=== PATIENT | male | born 1965 | race Caucasian/White ===

== ENCOUNTER 2016-08-01 20:17 | Emergency (ER) | payer BC ==
[2016-08-01] MEDS ORDERED: SODIUM CHLORIDE 0.9% 1,000 ML IV STA (20:45)
[2016-08-01] MEDS ORDERED: KETOROLAC 30 MG/ML 1 ML VIAL IVP STA (20:45)
[2016-08-01] MEDS ORDERED: ORPHENADRINE 30 MG/ML 2 ML VIAL IVP STA (20:46)
--- NOTE | 2016-08-01 21:04 | ED ---
Back Pain HPI - General Chief Complaint: Back Pain/Injury Stated Complaint: poss kidney infection Time Seen by Provider: 08/01/16 20:30 Source: patient, RN notes reviewed, old records reviewed Limitations: no limitations - History of Present Illness Initial Comments: This is a 50-year-old male presenting to the emergency department with chief complaint of lower back pain for the past day. Patient reports it's not either side. Patient reports that he has had diarrhea for the past 2 days. He reports that he caught something from working attributed to just a cold. Patient reports he size primary care provider last week and everything was fine. Patient states that he thinks he has a urinary tract infection. Denies any blood in his urine. Denies this this pain does not feel like previous kidney stones. - Related Data Home Medications Medication Instructions Recorded Confirmed Dextroamphetamine/Amphetamine 20 mg PO DAILY 08/01/16 08/01/16 [Adderall Xr] Ibuprofen [Motrin] 800 mg PO TID 08/01/16 08/01/16 Levothyroxine Sodium [Synthroid] 200 mcg PO DAILY 08/01/16 08/01/16 Omeprazole 20 mg PO BID 08/01/16 08/01/16 Simvastatin [Zocor] 40 mg PO DAILY 08/01/16 08/01/16 Previous Rx's Medication Instructions Recorded Ciprofloxacin HCl [Cipro] 500 mg PO Q12HR #6 tablet 08/01/16 Loperamide [Imodium] 2 mg PO QID #12 capsule 08/01/16 Allergies Allergy/AdvReac Type Severity Reaction Status Date / Time No Known Allergies Allergy Verified 08/01/16 20:49 Review of Systems ROS Statement: Those systems with pertinent positive or pertinent negative responses have been documented in the HPI. ROS Other: All systems not noted in ROS Statement are negative. Past Medical History Past Medical History: GERD/Reflux, Thyroid Disorder Additional Past Medical History / Comment(s): Kidney stone History of Any Multi-Drug Resistant Organisms: None Reported Additional Past Surgical History / Comment(s): fatty tumor from chest Past Psychological History: ADD/ADHD Smoking Status: Current every day smoker Past Alcohol Use History: None Reported Past Drug Use History: None Reported General Exam - General Exam Comments Initial Comments: This is a 50-year-old male. No acute distress. Limitations: no limitations General appearance: alert, in no apparent distress Head exam: Present: atraumatic, normocephalic, normal inspection Eye exam: Present: normal appearance, PERRL, EOMI. Absent: scleral icterus, conjunctival injection, periorbital swelling ENT exam: Present: normal exam, mucous membranes moist Neck exam: Present: normal inspection. Absent: tenderness, meningismus, lymphadenopathy Respiratory exam: Present: normal lung sounds bilaterally. Absent: respiratory distress, wheezes, rales, rhonchi, stridor Cardiovascular Exam: Present: regular rate, normal rhythm, normal heart sounds. Absent: systolic murmur, diastolic murmur, rubs, gallop, clicks GI/Abdominal exam: Present: soft, normal bowel sounds. Absent: distended, tenderness, guarding, rebound, rigid Extremities exam: Present: normal inspection, full ROM, normal capillary refill. Absent: tenderness, pedal edema, joint swelling, calf tenderness Back exam: Present: normal inspection Neurological exam: Present: alert, oriented X3, CN II-XII intact Psychiatric exam: Present: normal affect, normal mood Skin exam: Present: warm, dry, intact, normal color. Absent: rash Course Vital Signs 08/01/16 08/01/16 20:20 22:45 Temperature 98.0 F 97.9 F Pulse Rate 85 71 Respiratory 18 16 Rate Blood Pressure 146/80 142/78 O2 Sat by Pulse 98 100 Oximetry Medical Decision Making - Medical Decision Making This is a 50-year-old male presenting to the emergency department with chief complaint of lower back pain for the past day. Patient reports it's not either side. Patient reports that he has had diarrhea for the past 2 days. He reports that he caught something from working attributed to just a cold. Patient reports he size primary care provider last week and everything was fine. Patient states that he thinks he has a urinary tract infection. Denies any blood in his urine. Denies this this pain does not feel like previous kidney stones. Herber was reviewed and negative for any acute process. Patient reports he still has somewhat discomfort after receiving IV Norflex and pain medication. Patient advised of results. Discussed that he does not want a CAT scan. Patient reports that he will follow-up with her tomorrow with his primary care provider. Return parameters were discussed. - Lab Data Result diagrams: 08/01/16 21:00 08/01/16 21:00 Lab Results 06/08/01/16 08/01/16 Range/Units 21:00 21:00 21:20 WBC 6.0 (3.8-10.6) k/uL RBC 4.37 (4.30-5.90) m/uL Hgb 14.7 (13.0-17.5) gm/dL Hct 41.6 (39.0-53.0) % MCV 95.1 (80.0-100.0) fL MCH 33.6 (25.0-35.0) pg MCHC 35.3 (31.0-37.0) g/dL RDW 13.1 (11.5-15.5) % Plt Count 316 (150-450) k/uL Neutrophils % 57 % Lymphocytes % 28 % Monocytes % 5 % Eosinophils % 7 % Basophils % 1 % Neutrophils # 3.4 (1.3-7.7) k/uL Lymphocytes # 1.7 (1.0-4.8) k/uL Monocytes # 0.3 (0-1.0) k/uL Eosinophils # 0.4 (0-0.7) k/uL Basophils # 0.0 (0-0.2) k/uL Sodium 141 (137-145) mmol/L Potassium 3.9 (3.5-5.1) mmol/L Chloride 108 H (98-107) mmol/L Carbon Dioxide 24 (22-30) mmol/L Anion Gap 9 mmol/L BUN 14 (9-20) mg/dL Creatinine 0.85 (0.66-1.25) mg/dL Est GFR (MDRD) Af Amer >60 (>60 ml/min/1.73 sqM) Est GFR (MDRD) Non-Af >60 (>60 ml/min/1.73 sqM) Glucose 98 (74-99) mg/dL Calcium 8.8 (8.4-10.2) mg/dL Total Bilirubin 0.5 (0.2-1.3) mg/dL AST 25 (17-59) U/L ALT 30 (21-72) U/L Alkaline Phosphatase 61 (38-126) U/L Total Protein 6.6 (6.3-8.2) g/dL Albumin 3.9 (3.5-5.0) g/dL Amylase 85 (30-110) U/L Lipase 117 (23-300) U/L Urine Color Yellow Urine Appearance Clear (Clear) Urine pH 6.0 (5.0-8.0) Ur Specific [place] 1.016 (1.001-1.035) Urine Protein Negative (Negative) Urine Glucose (UA) Negative (Negative) Urine Ketones Negative (Negative) Urine Blood Negative (Negative) Urine Nitrite Negative (Negative) Urine Bilirubin Negative (Negative) Urine Urobilinogen <2.0 (<2.0) mg/dL Ur Leukocyte Esterase Negative (Negative) Disposition Clinical Impression: Diarrhea, Lower back pain Disposition: HOME SELF-CARE Condition: Good Instructions: Acute Diarrhea (ED), Acute Low Back Pain (ED) Additional Instructions: Patient advised to rest, increase fluids. Completely anabiotic prescription. Use the diarrhea pulses discussed. Follow-up with her primary care provider if symptoms continue persist. Return to emergency department if any alarming signs or symptoms occur. Prescriptions: Ciprofloxacin HCl [Cipro] 500 mg PO Q12HR #6 tablet Loperamide [Imodium] 2 mg PO QID #12 capsule Referrals: Nonstaff,Physician [Primary Care Provider] - 1-2 days Leola Doty MD [STAFF PHYSICIAN] - 1-2 days Time of Disposition: 22:24
[2016-08-01 21:17] LABS: ALT 30 U/L (21-72); AST 25 U/L (17-59); Alkaline Phosphatase 61 U/L (38-126); Amylase 85 U/L (30-110); Anion Gap 9 mmol/L; Blood Urea Nitrogen 14 mg/dL (9-20); Calcium 8.8 mg/dL (8.4-10.2); Carbon Dioxide 24 mmol/L (22-30); Chloride 108 mmol/L (98-107); Glucose 98 mg/dL (74-99); Non-African American GFR(MDRD) >60 (>60 ml/min/1.73 sqM); Potassium 3.9 mmol/L (3.5-5.1); Sodium 141 mmol/L (137-145); Total Bilirubin 0.5 mg/dL (0.2-1.3); Total Protein 6.6 g/dL (6.3-8.2)
--- NOTE | 2016-08-01 21:17 | XR ---
EXAMINATION TYPE: XR KUB DATE OF EXAM: 08/01/2016 COMPARISON: NONE HISTORY: Abdominal pain TECHNIQUE: 2 views FINDINGS: There is no sign of intestinal obstruction or pneumoperitoneum. Fecal pattern is normal. Th ere is no sign of a mass. there is possible infiltrate at the left lung base. There are no pathologic calcifications over the kidneys. IMPRESSION: Nonacute abdomen. Possible infiltrate at the right lung base.
[2016-08-01 21:24] LABS: Basophils % (A) 1 %; CH 33.5; CHCM 35.3; Eosinophils # (A) 0.4 k/uL (0-0.7); Eosinophils % (A) 7 %; HCT 41.6 % (39.0-53.0); HDW 2.35; HGB 14.7 gm/dL (13.0-17.5); Luc # (Auto) 0.15; Luc % (Auto) 3; Lymphocytes # (A) 1.7 k/uL (1.0-4.8); Lymphocytes % (A) 28 %; MCH 33.6 pg (25.0-35.0); MCHC 35.3 g/dL (31.0-37.0); MCV 95.1 fL (80.0-100.0); Mean Platelet Volume 6.3; Monocytes # (A) 0.3 k/uL (0-1.0); Monocytes % (A) 5 %; Neutrophils # (A) 3.4 k/uL (1.3-7.7); Neutrophils % (A) 57 %; RBC 4.37 m/uL (4.30-5.90); RDW 13.1 % (11.5-15.5); WBC (Perox) 6.24
[2016-08-01 21:42] LABS: Appearance,Urine Clear (Clear); Bilirubin,Urine Negative (Negative); Glucose,Urine (UA) Negative (Negative); Ketones,Urine Negative (Negative); Leukocyte Esterase,Urine Negative (Negative); Nitrite,Urine Negative (Negative); Protein,Urine Negative (Negative); Specific Gravity,Urine 1.016 (1.001-1.035); UA Billing (MACRO vs. MICRO) CHEM; Urobilinogen,Urine <2.0 mg/dL (<2.0)
[2016-08-01 23:04] VITALS: BP 142/78; PULSE 71; RESP 16; TEMP 97.9
== END 2016-08-01 22:45 | disposition home or self-care (01) ==
LOC: EC 20:17
DX: M54.5 Low back pain (principal); R19.7 Diarrhea, unspecified; F90.9 Attention-deficit hyperactivity disorder, unspecified type; K21.9 Gastro-esophageal reflux disease without esophagitis; E07.9 Disorder of thyroid, unspecified; F17.200 Nicotine dependence, unspecified, uncomplicated; Z79.1 Long term (current) use of non-steroidal anti-inflammatories (NSAID); Z79.899 Other long term (current) drug therapy; Z87.442 Personal history of urinary calculi
CPT/HCPCS: 36415; 80053; 82150; 83690; 85025; 81003; 74000; 99284; 96374; 96375; J2360; J1885

== ENCOUNTER 2020-10-10 11:54 | Emergency (ER) | payer BC ==
[2020-10-10 12:09] VITALS: RESP 18; TEMP 97.2
[2020-10-10] MEDS ORDERED: ONDANSETRON 4 MG/2 ML VIAL IVP STA ×2 (12:15→14:05)
[2020-10-10] MEDS ORDERED: SODIUM CHLORIDE 0.9% 1,000 ML IV STA (12:15)
[2020-10-10] MEDS ORDERED: HYDROmorphone 0.5 MG/0.5 ML SYRINGE IVP STA (12:15)
[2020-10-10] MEDS ORDERED: KETOROLAC 15 MG/ML 1 ML VIAL IVP STA (12:15)
--- NOTE | 2020-10-10 12:15 | ED ---
Abdominal Pain HPI - General Chief Complaint: Abdominal Pain Stated Complaint: Back Pain Time Seen by Provider: 10/10/20 12:05 Source: patient Mode of arrival: EMS Limitations: no limitations - History of Present Illness Initial Comments: 55-year-old male with past medical history of thyroid disorder, kidney stones who presents emergency department with reported left-sided flank pain which radiates around to the anterior aspect of his low groin. Patient admits a history of similar pain in the past secondary to kidney stones. Reports his last one was a couple of years ago. Does not follow with urologist. Pain started yesterday around 3 PM. States that sharp in nature and not reproducible with movement. Associated fevers. Admits chills. Has been taking Motrin 800 mg every 6 hours without improvement in his pain. No dysuria, hematuria or difficult voiding. Denies any changes in his bowel movements. Admits nausea without vomiting. No testicular swelling or penile discharge. No other alleviating, precipitating or modifying factors - Related Data Home Medications Medication Instructions Recorded Confirmed Dextroamphetamine/Amphetamine 20 mg PO DAILY 08/01/16 10/12/20 [Adderall Xr] Ibuprofen [Motrin] 800 mg PO Q8H 08/01/16 10/12/20 Levothyroxine Sodium [Synthroid] 200 mcg PO DAILY 08/01/16 10/12/20 Omeprazole 20 mg PO BID 08/01/16 10/12/20 Simvastatin [Zocor] 40 mg PO HS 08/01/16 10/12/20 Albuterol Inhaler [Ventolin Hfa 2 puff INHALATION RT-Q6H PRN 10/10/20 10/12/20 Inhaler] Cetirizine HCl [Zyrtec] 10 mg PO DAILY 10/10/20 10/12/20 Previous Rx's Medication Instructions Recorded HYDROcodone/APAP 5-325MG [Thornton 1 tab PO Q6HR PRN 3 Days #12 tab 10/10/20 5-325] Ketorolac [Toradol] 10 mg PO Q8HR PRN #15 tab 10/10/20 Ondansetron Odt [Zofran Odt] 4 mg PO Q8HR PRN #10 tab 10/10/20 Tamsulosin [Flomax] 0.4 mg PO DAILY #7 cap 10/10/20 HYDROcodone/APAP 10-325MG [Thornton 1 tab PO Q6HR PRN 3 Days #12 tab 10/12/20 10-325] Ketorolac [Toradol] 10 mg PO Q8HR #15 tab 10/12/20 Tamsulosin [Flomax] 0.4 mg PO DAILY #7 cap 10/12/20 Allergies Allergy/AdvReac Type Severity Reaction Status Date / Time No Known Allergies Allergy Verified 10/12/20 16:41 Review of Systems ROS Statement: Those systems with pertinent positive or pertinent negative responses have been documented in the HPI. ROS Other: All systems not noted in ROS Statement are negative. 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 Absent: scleral icterus, co njunctival injection, periorbital swelling ENT exam: Present: normal exam, mucous membranes moist Neck exam: Present: normal inspection. Absent: tenderness, meningismus, lymphadenopathy Respiratory exam: Present: normal lung sounds bilaterally. Absent: respiratory distress, wheezes, rales, rhonchi, stridor Cardiovascular Exam: Present: regular rate, normal rhythm, normal heart sounds. Absent: systolic murmur, diastolic murmur, rubs, gallop, clicks GI/Abdominal exam: Present: soft, normal bowel sounds. Absent: distended, tenderness, guarding, rebound, rigid Extremities exam: Present: normal inspection, full ROM, normal capillary refill. Absent: tenderness, pedal edema, joint swelling, calf tenderness Back exam: Present: CVA tenderness (L) Neurological exam: Present: alert, oriented X3, CN II-XII intact Psychiatric exam: Present: normal affect, normal mood Skin exam: Present: warm, dry, intact, normal color. Absent: rash Course Vital Signs 10/10/20 10/10/20 12:04 14:25 Temperature 97.2 F L Pulse Rate 62 70 Respiratory 18 18 Rate Blood Pressure 144/94 140/76 O2 Sat by Pulse 99 99 Oximetry - Reevaluation(s) Reevaluation #1: 10/10/20 14:[address] Batista - will review imaging and call back Medical Decision Making - Medical Decision Making Upon arrival patient was placed into room 20. A thorough history and physical exam is performed. IV is established. The patient was given a liter bolus of normal saline, 4 mg of Zofran, 15 mill grams of Toradol and 0.5 mg of Dilaudid. Laboratory studies were conducted. Patient provided urine sample. He is sent over for a CT of his abdomen and pelvis. Laboratory studies are reviewed and are within normal limits. Urinalysis demonstrates occasional bacteria with rare budding yeast. CT of the patient's abdomen and pelvis demonstrates a calcification overlying the prostate urethra measuring 4.5 x 3.7 mm. These results were discussed the patient. He is reevaluated and states he has improvement in his pain. I did discuss diagnosis, differential treatment options. At this time the patient will be discharged home with prescriptions for Flomax, Toradol, Thornton and Zofran. Side effect profile is discussed regarding the medications. Patient is to increase fluid intake and strain all his urine. Patient agreed to this. He was given urology follow-up. He does get into a wheelchair to be wheeled out to his car when he does have sudden onset or the return of his pain. A second dose of pain medications is ordered. I did call and seek with Dr. Batista in regards to the patient's symptoms. He recommends a ladder scan and possible Roberts catheter placement the patient is having retention of urine. The patient does attempted to pee. He has 75 mL of urine left in his bladder. I did recommend roberts placement to help with pain reduction over the patient refuses. I did discuss the diagnosis and further treatment options. Patient feels comfortable for discharge at this time. He is given follow-up information for the urologist. Instructed to return to the emergency room for any new or worsening symptoms. Patient stated this, was given written and verbal discharge instructions and discharged home in stable condition - Lab Data Result diagrams: 10/10/20 12:20 10/10/20 12:20 Lab Results 10/10/20 10/10/20 10/10/20 Range/Units 12:20 12:20 13:25 WBC 6.8 (3.8-10.6) k/uL RBC 4.75 (4.30-5.90) m/uL Hgb 15.5 (13.0-17.5) gm/dL Hct 45.2 (39.0-53.0) % MCV 95.2 (80.0-100.0) fL MCH 32.7 (25.0-35.0) pg MCHC 34.3 (31.0-37.0) g/dL RDW 12.8 (11.5-15.5) % Plt Count 363 (150-450) k/uL MPV 6.4 Neutrophils % 63 % Lymphocytes % 21 % Monocytes % 5 % Eosinophils % 7 % Basophils % 1 % Neutrophils # 4.3 (1.3-7.7) k/uL Lymphocytes # 1.5 (1.0-4.8) k/uL Monocytes # 0.3 (0-1.0) k/uL Eosinophils # 0.5 (0-0.7) k/uL Basophils # 0.1 (0-0.2) k/uL Sodium 137 (137-145) mmol/L Potassium 4.6 (3.5-5.1) mmol/L Chloride 105 (98-107) mmol/L Carbon Dioxide 26 (22-30) mmol/L Anion Gap 6 mmol/L BUN 17 (9-20) mg/dL Creatinine 0.69 (0.66-1.25) mg/dL Est GFR (CKD-EPI)AfAm >90 (>60 ml/min/1.73 sqM) Est GFR (CKD-EPI)NonAf >90 (>60 ml/min/1.73 sqM) Glucose 102 H (74-99) mg/dL Calcium 9.0 (8.4-10.2) mg/dL Total Bilirubin 0.5 (0.2-1.3) mg/dL AST 28 (17-59) U/L ALT 26 (4-49) U/L Alkaline Phosphatase 58 (38-126) U/L Total Protein 6.7 (6.3-8.2) g/dL Albumin 4.0 (3.5-5.0) g/dL Lipase 56 (23-300) U/L Urine Color Yellow Urine Appearance Cloudy (Clear) Urine pH 8.0 (5.0-8.0) Ur Specific [place] 1.026 (1.001-1.035) Urine Protein Negative (Negative) Urine Glucose (UA) Negative (Negative) Urine Ketones Negative (Negative) Urine Blood Negative (Negative) Urine Nitrite Negative (Negative) Urine Bilirubin Negative (Negative) Urine Urobilinogen <2.0 (<2.0) mg/dL Ur Leukocyte Esterase Negative (Negative) Urine RBC <1 (0-5) /hpf Urine WBC 1 (0-5) /hpf Urine Bacteria Occasional H (None) /hpf Urine Mucus Few H (None) /hpf Urine Yeast (Budding) Rare H (None) /hpf Disposition Clinical Impression: Left flank pain, Urethral stone Disposition: HOME SELF-CARE Condition: Stable Instructions (If sedation given, give patient instructions): Kidney Stones (ED) Additional Instructions: Please follow up with your PCP in 2-4 days. Take the pain meds as directed. Follow up with the urologist. Return to the ED for any new or worsening symptoms. Strain all your urine. Increase fluid intake. Prescriptions: Tamsulosin [Flomax] 0.4 mg PO DAILY #7 cap HYDROcodone/APAP 5-325MG [Thornton 5-325] 1 tab PO Q6HR PRN 3 Days #12 tab PRN Reason: Pain Ketorolac [Toradol] 10 mg PO Q8HR PRN #15 tab PRN Reason: Pain Ondansetron Odt [Zofran Odt] 4 mg PO Q8HR PRN #10 tab PRN Reason: Nausea Is patient prescribed a controlled substance at d/c from ED?: Yes When asked, does pt state using other controlled substances?: No If prescribed controlled substance>3 days was MAPS reviewed?: Prescribed <3 Days If opioid is for acute pain is fill amount 7 days or less?: Yes If Rx opioid, was Start Talking consent form obtained?: Yes Referrals: Per Batista MD [STAFF PHYSICIAN] - 1-2 days Nonstaff,Physician [Primary Care Provider] - 1-2 days Time of Disposition: 14:09
[2020-10-10 12:53] LABS: Basophils # (A) 0.1 k/uL (0-0.2); Basophils % (A) 1 %; Eosinophils # (A) 0.5 k/uL (0-0.7); Eosinophils % (A) 7 %; HCT 45.2 % (39.0-53.0); HGB 15.5 gm/dL (13.0-17.5); Lymphocytes # (A) 1.5 k/uL (1.0-4.8); Lymphocytes % (A) 21 %; MCH 32.7 pg (25.0-35.0); MCHC 34.3 g/dL (31.0-37.0); MCV 95.2 fL (80.0-100.0); Mean Platelet Volume 6.4; Monocytes # (A) 0.3 k/uL (0-1.0); Monocytes % (A) 5 %; Neutrophils # (A) 4.3 k/uL (1.3-7.7); Neutrophils % (A) 63 %; Platelet Count 363 k/uL (150-450); RBC 4.75 m/uL (4.30-5.90); RDW 12.8 % (11.5-15.5); WBC 6.8 k/uL (3.8-10.6)
[2020-10-10 12:55] LABS: Chloride 105 mmol/L (98-107)
[2020-10-10 12:58] LABS: ALT 26 U/L (4-49); AST 28 U/L (17-59); African American GFR (CKD) >90 (>60 ml/min/1.73 sqM); Alkaline Phosphatase 58 U/L (38-126); Anion Gap 6 mmol/L; Blood Urea Nitrogen 17 mg/dL (9-20); Carbon Dioxide 26 mmol/L (22-30); Glucose 102 mg/dL (74-99); Lipase 56 U/L (23-300); Non-African American GFR(CKD) >90 (>60 ml/min/1.73 sqM); Potassium 4.6 mmol/L (3.5-5.1); Sodium 137 mmol/L (137-145); Total Bilirubin 0.5 mg/dL (0.2-1.3); Total Protein 6.7 g/dL (6.3-8.2)
--- NOTE | 2020-10-10 13:29 | CT ---
EXAMINATION TYPE: CT abdomen pelvis wo con DATE OF EXAM: 10/10/2020 COMPARISON: None HISTORY: Lt flank pain, history of renal stones CT DLP: 1365.4 mGycm Examination of the solid and hollow viscera is limited given the lack of contrast. FINDINGS: LUNG BASES: No evidence for nodule. No evidence for infiltrate. LIVER/GB: The gallbladder is unremarkable. No space-occupying hepatic lesion. PANCREAS: No pancreatic mass identified. No inflammatory process seen. SPLEEN: No evidence for splenomegaly. No intrasplenic lesions seen. ADRENALS: No adrenal nodules identified. No evidence for thickening. KIDNEYS: There is calcific density noted to overlie the region of the prostate urethra measuring 4.5 x 3.7 mm. This could reflect a recently passed calculus. There is no hydronephrosis however. No renal calculi or masses are seen at this time. Correlate clinically. BOWEL: Appendix has a normal appearance. No evidence of bowel obstruction. No inflammatory process. S igmoid diverticulosis without diverticulitis. Lymph nodes: No evidence for adenopathy greater than 1 cm. Abdominal aorta: Atheromatous changes seen. No evidence for aneurysm. Genital organs: No significant abnormality. Other: No significant abnormality. IMPRESSION: 1.There is calcific density noted to overlie the region of the prostate urethra measuring 4.5 x 3.7 m m. This could reflect a recently passed calculus. Correlate clinically.
[2020-10-10 13:45] LABS: Appearance,Urine Cloudy (Clear); Bacteria,Urine Occasional /hpf; Bilirubin,Urine Negative (Negative); Blood,Urine Negative (Negative); Budding Yeast,Urine Rare /hpf; Color,Urine Yellow; Glucose,Urine (UA) Negative (Negative); Ketones,Urine Negative (Negative); Leukocyte Esterase,Urine Negative (Negative); Mucus,Urine Few /hpf; Nitrite,Urine Negative (Negative); Protein,Urine Negative (Negative); RBC,Urine <1 /hpf (0-5); Specific Gravity,Urine 1.026 (1.001-1.035); Urobilinogen,Urine <2.0 mg/dL (<2.0); WBC,Urine 1 /hpf (0-5)
[2020-10-10] MEDS ORDERED: HYDROmorphone 1 MG/ML 1 ML SYRINGE IVP STA (14:05)
[2020-10-10 14:27] VITALS: BP 140/76; PULSE 70
== END 2020-10-10 15:31 | disposition home or self-care (01) ==
LOC: EC 11:54
DX: N21.1 Calculus in urethra (principal); E07.9 Disorder of thyroid, unspecified; K21.9 Gastro-esophageal reflux disease without esophagitis; Z79.899 Other long term (current) drug therapy; Z87.891 Personal history of nicotine dependence; Z79.890 Hormone replacement therapy
CPT/HCPCS: 36415; 80053; 83690; 85025; 81001; 74176; 99284; 96374; 96375; 96376; J2405; J1170 ×2; J1885

== ENCOUNTER 2020-10-12 13:48 | Emergency (ER) | payer BC ==
[2020-10-12 14:03] VITALS: TEMP 98.2
[2020-10-12] MEDS ORDERED: ONDANSETRON 4 MG/2 ML VIAL IVP STA ×2 (14:14→15:44)
[2020-10-12] MEDS ORDERED: SODIUM CHLORIDE 0.9% 1,000 ML IV STA (14:14)
[2020-10-12] MEDS ORDERED: KETOROLAC 15 MG/ML 1 ML VIAL IVP STA (14:14)
[2020-10-12 14:41] VITALS: RESP 18
[2020-10-12 14:44] LABS: Basophils # (A) 0.1 k/uL (0-0.2); Basophils % (A) 1 %; Eosinophils # (A) 0.2 k/uL (0-0.7); Eosinophils % (A) 3 %; HCT 45.5 % (39.0-53.0); HGB 15.7 gm/dL (13.0-17.5); Lymphocytes # (A) 1.3 k/uL (1.0-4.8); Lymphocytes % (A) 19 %; MCHC 34.5 g/dL (31.0-37.0); MCV 95.5 fL (80.0-100.0); Mean Platelet Volume 6.8; Monocytes # (A) 0.4 k/uL (0-1.0); Monocytes % (A) 5 %; Neutrophils % (A) 70 %; Platelet Count 360 k/uL (150-450); RBC 4.77 m/uL (4.30-5.90); RDW 12.9 % (11.5-15.5); WBC 7.2 k/uL (3.8-10.6)
[2020-10-12 14:52] LABS: ALT 24 U/L (4-49); AST 38 U/L (17-59); African American GFR (CKD) >90 (>60 ml/min/1.73 sqM); Alkaline Phosphatase 50 U/L (38-126); Anion Gap 6 mmol/L; Blood Urea Nitrogen 15 mg/dL (9-20); Calcium 8.9 mg/dL (8.4-10.2); Carbon Dioxide 24 mmol/L (22-30); Chloride 105 mmol/L (98-107); Glucose 96 mg/dL (74-99); Non-African American GFR(CKD) >90 (>60 ml/min/1.73 sqM); Sodium 135 mmol/L (137-145); Total Bilirubin 0.8 mg/dL (0.2-1.3); Total Protein 6.7 g/dL (6.3-8.2)
--- NOTE | 2020-10-12 15:10 | XR ---
EXAMINATION TYPE: XR KUB DATE OF EXAM: 10/12/2020 COMPARISON: NONE HISTORY: Pain TECHNIQUE: One view abdominal series FINDINGS: The osseous structures are intact. The bowel gas pattern is nonspecific. Lung bases are clear. Hype rtrophic and degenerative change of the spine. Arthropathy of the hips. IMPRESSION: 1. Nonspecific abdomen.
[2020-10-12] MEDS ORDERED: HYDROmorphone 0.5 MG/0.5 ML SYRINGE IVP STA (15:34)
[2020-10-12 15:50] LABS: Appearance,Urine Clear (Clear); Bilirubin,Urine Negative (Negative); Blood,Urine Negative (Negative); Color,Urine Light Yellow; Glucose,Urine (UA) Negative (Negative); Ketones,Urine Negative (Negative); Leukocyte Esterase,Urine Negative (Negative); Nitrite,Urine Negative (Negative); PH, Urine 6.5 (5.0-8.0); Protein,Urine Negative (Negative); Specific Gravity,Urine 1.008 (1.001-1.035); Urobilinogen,Urine <2.0 mg/dL (<2.0)
--- NOTE | 2020-10-12 17:21 | US ---
EXAMINATION TYPE: US kidneys/renal and bladder DATE OF EXAM: 10/12/2020 COMPARISON: CT abdomen pelvis 10/10/2020 CLINICAL HISTORY: stones. Left flank pain EXAM MEASUREMENTS: Right Kidney: 10.7 x 5.4 x 5.1 cm Left Kidney: 11.8 x 4.9 x 6.0 cm Right Kidney: No hydronephrosis. Left Kidney: No hydronephrosis. Bladder: anechoic, wnl Bilateral Jets not seen The bilateral kidneys are obscured from patient body habitus and bowel gas. There is no hydronephrosi s bilaterally. There is normal cortical thickness and renal echogenicity of the bilateral kidneys. No shadowing nephrolithiasis bilaterally. The urinary bladder is anechoic and normal. Bilateral urete ral jets are not visualized. IMPRESSION: 1. No hydronephrosis bilaterally. 2. Normal appearance of the urinary bladder.
--- NOTE | 2020-10-12 17:38 | ED ---
Abdominal Pain HPI - General Chief Complaint: Abdominal Pain Stated Complaint: back pain Time Seen by Provider: 10/12/20 14:04 Source: patient, RN notes reviewed Mode of arrival: EMS Limitations: no limitations - History of Present Illness Initial Comments: Patient is a 55-year-old male that presents to the emergency department complaining of left flank pain. He notes he was recently diagnosed a kidney stone sent home with conservative management told to increase fluids and follow- up with urology. He comes in today complaining of the same pain stating that his urine wasn't ran. His wanted to check for UTI possibly. He was in obvious discomfort and pain while sitting up in bed during the exam interview. He denied any hematuria chest pain shortness of breath headache nausea vomiting diarrhea constipation fever fatigue chills. - Related Data Home Medications Medication Instructions Recorded Confirmed Dextroamphetamine/Amphetamine 20 mg PO DAILY 08/01/16 10/12/20 [Adderall Xr] Ibuprofen [Motrin] 800 mg PO Q8H 08/01/16 10/12/20 Levothyroxine Sodium [Synthroid] 200 mcg PO DAILY 08/01/16 10/12/20 Omeprazole 20 mg PO BID 08/01/16 10/12/20 Simvastatin [Zocor] 40 mg PO HS 08/01/16 10/12/20 Albuterol Inhaler [Ventolin Hfa 2 puff INHALATION RT-Q6H PRN 10/10/20 10/12/20 Inhaler] Cetirizine HCl [Zyrtec] 10 mg PO DAILY 10/10/20 10/12/20 Previous Rx's Medication Instructions Recorded HYDROcodone/APAP 5-325MG [[place] 1 tab PO Q6HR PRN 3 Days #12 tab 10/10/20 5-325] Ketorolac [Toradol] 10 mg PO Q8HR PRN #15 tab 10/10/20 Ondansetron Odt [Zofran Odt] 4 mg PO Q8HR PRN #10 tab 10/10/20 Tamsulosin [Flomax] 0.4 mg PO DAILY #7 cap 10/10/20 Ketorolac [Toradol] 10 mg PO Q8HR #15 tab 10/12/20 Tamsulosin [Flomax] 0.4 mg PO DAILY #7 cap 10/12/20 Allergies Allergy/AdvReac Type Severity Reaction Status Date / Time No Known Allergies Allergy Verified 10/12/20 16:41 Review of Systems ROS Statement: Those systems with pertinent positive or pertinent negative responses have been documented in the HPI. ROS Other: All systems not noted in ROS Statement are negative. 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 Absent: scleral icterus, conjunctival injection, periorbital swelling Neck exam: Present: normal inspection Respiratory exam: Present: normal lung sounds bilaterally. Absent: respiratory distress, wheezes, rales, rhonchi, stridor Cardiovascular Exam: Present: regular rate, normal rhythm, normal heart sounds. Absent: systolic murmur, diastolic murmur, rubs, gallop, clicks GI/Abdominal exam: Present: soft, normal bowel sounds. Absent: distended, tenderness, guarding, rebound, rigid Extremities exam: Present: normal inspection, full ROM, normal capillary refill. Absent: tenderness, pedal edema, joint swelling, calf tenderness Back exam: Present: normal inspection, tenderness (Left flank) Neurological exam: Present: alert, oriented X3 Psychiatric exam: Present: normal affect, normal mood Skin exam: Present: warm, dry, intact, normal color. Absent: rash Course Vital Signs 10/12/20 10/12/20 10/12/20 13:57 14:40 16:07 Temperature 98.2 F Pulse Rate 56 L 67 64 Respiratory 16 18 18 Rate Blood Pressure 153/83 165/88 149/79 O2 Sat by Pulse 97 97 97 Oximetry Medical Decision Making - Medical Decision Making 55-year-old male with kidney stone the left side complaining of pain. Labs, KUB, 1 L normal saline, 2 mg of morphine, 4 mg of Zofran ordered. Labs unremarkable. KUB negative for any acute process. Patient states that he still nauseous and having pain, 15 mg Toradol, 4 mg Zofran ordered. Ultrasounds of the kidneys ureters and bladder ordered: Negative for hydronephrosis. Case discussed with Dr. Multani, patient can discharge home with conservative management again follow-up to urology. - Lab Data Result diagrams: 10/12/20 14:32 10/12/20 14:32 Lab Results 10/12/20 10/12/20 10/12/20 Range/Units 14:32 14:32 14:32 WBC 7.2 (3.8-10.6) k/uL RBC 4.77 (4.30-5.90) m/uL Hgb 15.7 (13.0-17.5) gm/dL Hct 45.5 (39.0-53.0) % MCV 95.5 (80.0-100.0) fL MCH 33.0 (25.0-35.0) pg MCHC 34.5 (31.0-37.0) g/dL RDW 12.9 (11.5-15.5) % Plt Count 360 (150-450) k/uL MPV 6.8 Neutrophils % 70 % Lymphocytes % 19 % Monocytes % 5 % Eosinophils % 3 % Basophils % 1 % Neutrophils # 5.0 (1.3-7.7) k/uL Lymphocytes # 1.3 (1.0-4.8) k/uL Monocytes # 0.4 (0-1.0) k/uL Eosinophils # 0.2 (0-0.7) k/uL Basophils # 0.1 (0-0.2) k/uL Sodium 135 L (137-145) mmol/L Potassium 5.0 (3.5-5.1) mmol/L Chloride 105 (98-107) mmol/L Carbon Dioxide 24 (22-30) mmol/L Anion Gap 6 mmol/L BUN 15 (9-20) mg/dL Creatinine 0.65 L (0.66-1.25) mg/dL Est GFR (CKD-EPI)AfAm >90 (>60 ml/min/1.73 sqM) Est GFR (CKD-EPI)NonAf >90 (>60 ml/min/1.73 sqM) Glucose 96 (74-99) mg/dL Calcium 8.9 (8.4-10.2) mg/dL Total Bilirubin 0.8 (0.2-1.3) mg/dL AST 38 (17-59) U/L ALT 24 (4-49) U/L Alkaline Phosphatase 50 (38-126) U/L Total Protein 6.7 (6.3-8.2) g/dL Albumin 4.0 (3.5-5.0) g/dL Urine Color Light Yellow Urine Appearance Clear (Clear) Urine pH 6.5 (5.0-8.0) Ur Specific [place] 1.008 (1.001-1.035) Urine Protein Negative (Negative) Urine Glucose (UA) Negative (Negative) Urine Ketones Negative (Negative) Urine Blood Negative (Negative) Urine Nitrite Negative (Negative) Urine Bilirubin Negative (Negative) Urine Urobilinogen <2.0 (<2.0) mg/dL Ur Leukocyte Esterase Negative (Negative) - Radiology Data Radiology results: report reviewed, image reviewed Ultrasound of the kidneys renal and bladder: No hydronephrosis bilaterally. Normal appearance of the urinary bladder. KUB: Nonspecific abdomen Disposition Clinical Impression: Left flank pain, Urethral stone Disposition: HOME SELF-CARE Condition: Stable Instructions (If sedation given, give patient instructions): Abdominal Pain (ED) Additional Instructions: Please return to the Emergency Department if symptoms worsen or any other concerns. Continue take Toradol and pain medications as prescribed. Increase oral fluids. Follow-up with urology in the next 1-2 days. Is patient prescribed a controlled substance at d/c from ED?: No Referrals: Nonstaff,Physician [Primary Care Provider] - 1-2 days Time of Disposition: 17:38
[2020-10-12 17:51] VITALS: BP 139/78; PULSE 69
== END 2020-10-12 17:57 | disposition home or self-care (01) ==
LOC: EC 13:48
DX: N21.1 Calculus in urethra (principal); M54.9 Dorsalgia, unspecified; E07.9 Disorder of thyroid, unspecified; K21.9 Gastro-esophageal reflux disease without esophagitis; Z79.899 Other long term (current) drug therapy; Z87.891 Personal history of nicotine dependence; Z79.890 Hormone replacement therapy
CPT/HCPCS: 36415; 80053; 85025; 81003; 74018; 76770; 99285; 96376; 96374; 96375; 96361; J2405; J1885; J1170; 99284

== ENCOUNTER → 2023-01-05 | Outpatient (CLI) | payer BC ==
--- NOTE | 2023-01-07 07:24 | CT ---
EXAMINATION TYPE: CT abdomen pelvis wo con DATE OF EXAM: 01/05/2023 COMPARISON: 10/10/2020 HISTORY: Left flank pain and hematuria x [address] DLP: 1435.1 mGycm Automated exposure control for dose reduction was used. TECHNIQUE: Helical acquisition of images was performed from the lung bases through the pelvis. FINDINGS: The lung bases are clear. Gallbladder is normal without distention, wall thickening, pericholecystic fluid or gallstone. There is no biliary ductal dilatation. There is no organomegaly involving the liver, pancreas, spleen or adrenal glands. There are no renal calcifications and there is no hydronephrosis. The caliber the abdominal aorta is normal is no retroperitoneal adenopathy or hemorrhage. The bowel loops are normal in caliber is no dilatation or obstruction. There is marked diverticulosis of the sigmoid colon. Adjacent to the sigmoid colon and left aspect of the urinary bladder were ther e is mild hazy density in the fat suggest the presence of a mild diverticulitis. There is no free int raperitoneal air or fluid. There is no abscess. There is mild enlargement of the prostate gland with mild prostatic calcification. No focal osseous lesions are seen. IMPRESSION: Marked diverticulosis of the sigmoid colon with possible mild sigmoid diverticulitis is described abo ve.
== END | disposition home or self-care (01) ==
LOC: RADCTMAIN 18:53
PROVIDERS: ATTEND Family Medicine
DX: K57.30 Diverticulosis of large intestine without perforation or abscess without bleeding (principal); M54.50 Low back pain, unspecified; R82.90 Unspecified abnormal findings in urine; Z87.442 Personal history of urinary calculi
CPT/HCPCS: 74176

== ENCOUNTER → 2023-04-07 | Outpatient (CLI) | payer BC ==
--- NOTE | 2023-04-07 08:48 | CTL ---
EXAMINATION TYPE: CT Low Dose Lung DATE OF EXAM ORDERED: 04/07/2023 HISTORY: Long-term tobacco use. Lung cancer screening CT DLP: 172.[address] CTDI: 4.3 mGy Automated exposure control for dose reduction was used. SCREENING VISIT: Baseline COMPARISON: None TECHNIQUE: Low dose computed tomography scan was performed through the chest at 1 mm thick sections a nd reconstructed images in multiple planes at 1 mm and [address] DIAGNOSTIC QUALITY: Satisfactory FINDINGS: LUNG NODULES: None. LUNGS: COPD: Severity: None Fibrosis: Severity: None Lymph nodes: None Other findings: None RIGHT PLEURAL SPACE: Effusion: None Calcification: None Thickening: None Pneumothorax: None LEFT PLEURAL SPACE: Effusion: None Calcification: None Thickening: None Pneumothorax: None HEART: Heart Size: Normal Coronary Calcification: Mild Pericardial Effusion: None OTHER FINDINGS: Upper abdomen: None Bony thorax: S-shaped scoliosis with mild to moderate multilevel spurring Supraclavicular region: None Other: None IMPRESSION: No suspicious pulmonary nodules CT LUNG RAD AND CT CHEST RECOMMENDATION: Lung-Rad 1 Negative: Continue annual screening with LDCT in 12 months. S Modifier (other clinically significant findings): None
== END | disposition home or self-care (01) ==
LOC: RADCTMAIN 07:43
PROVIDERS: ATTEND Internal Medicine
DX: Z12.2 Encounter for screening for malignant neoplasm of respiratory organs (principal); Z87.891 Personal history of nicotine dependence
CPT/HCPCS: 71271